=== PATIENT | female | born 1940 | race Caucasian/White ===

== ENCOUNTER 2019-09-24 14:38 | Emergency (ER) | payer MEDICARE, SELFPAY ==
[2019-09-24 14:48] VITALS: BP 142/76; PULSE 75; RESP 19; TEMP 36.8; O2SAT 99
--- NOTE | 2019-09-24 15:47 | ED.GENADULT ---
HPI - General Adult General Chief complaint: Upper Respiratory Infection Stated complaint: SORE THROAT Time Seen by Provider: 09/24/19 15:47 Source: patient and RN notes reviewed Mode of arrival: ambulatory Limitations: no limitations History of Present Illness HPI narrative: 78-year-old male presents with complaints of tight, irritated, and sore throat for 58 days. No treatment. Increase symptoms over the last 48-72 hours with increase pain with swallowing. Ni believes she might have Strep Throat. Awaiting ENT evaluation. No high fevers, drooling, neck, or throat swelling. Pain is bilateral. Hurts to swallow. Exacerbation factors consist of eating and drinking. No rhinorrhea. Nasal congestion. No voice change. No nausea, vomiting, or abdominal pain. Tolerating liquids well. Denies chills, dyspnea, jaw pain, dental pain, facial pain, foreign body sensation, and rash. Remains active. Some parts of this dictation were generated by voice recognition software and may contain typographical and/or grammatical inaccuracies. Related Data Home Medications Medication Instructions Recorded Confirmed albuterol sulfate [ProAir HFA] 1 puff INHALATION QID PRN 07/07/19 09/24/19 aspirin 81 mg PO DAILY 07/07/19 09/24/19 azelastine-fluticasone [Dymista] 1 spray INTRANASAL BID 07/07/19 09/24/19 calcium carbonate [Calcium 500] 500 mg PO DAILY 07/07/19 09/24/19 cetirizine 10 mg PO DAILY 07/07/19 09/24/19 cholecalciferol (vitamin D3) 2,000 unit PO DAILY 07/07/19 09/24/19 [Vitamin D3] [id number] K 1 tablet PO DAILY 07/07/19 09/24/19 [Adults Multivitamin] oxybutynin chloride 10 mg PO DAILY 07/07/19 09/24/19 pravastatin 40 mg PO DAILY 07/07/19 09/24/19 Allergies Allergy/AdvReac Type Severity Reaction Status Date / Time No Known Allergies Allergy Verified 08/15/19 11:41 Review of Systems Review of Systems: Narrative: CONSTITUTIONAL: Denies fever, chills, sweats. EYES: Denies visual changes, redness, discharge. ENT: Denies rhinorrhea, otalgia. Complains of sore throat, congestion. CARDIOVASCULAR: Denies chest pain, palpitations, edema. RESPIRATORY: Denies dyspnea, wheezing, cough. GASTROINTESTINAL: Denies abdominal pain, nausea, vomiting, diarrhea. GENITOURINARY: Denies dysuria, hematuria, abnormal discharge. SKIN: Denies rash or itching. MUSCULOSKELETAL: Denies acute back pain, joint pain, or myalgia. NEUROLOGIC: Denies numbness or focal weakness. PSYCHIATRIC: Denies anxiety or depression. All systems reviewed & are unremarkable except as noted in HPI and below. FOR[facility] Past Medical History Medical History Anxiety Arthritis of hip Back pain with history of spinal surgery Bilateral carpal tunnel syndrome Cervical cancer COPD (chronic obstructive pulmonary disease) Cough Depression GERD (gastroesophageal reflux disease) Gout History of emphysema Hyperlipidemia Pneumonia Rectal polyp Skin cancer Sleep apnea Uterine cancer UTI (urinary tract infection) Surgical History Surgical History H/O bilateral cataract extraction History of appendectomy History of bladder suspension procedure History of hysterectomy Hx of tonsillectomy Family History Family History Mother Diabetes mellitus Family history of cardiovascular disease Carcinoma of colon Hypertension Family history of malignant neoplasm Father Family history of lung cancer, Onset Age: 45 Family history of malignant neoplasm Sibling Family history of sleep apnea Social History Social History Smoking status: Former smoker Smoking end date: 07/27/97 Alcohol intake: current Comments At time of signature, agree with nurse past medical, surgical, social, and family history. There is no rele
== END 2019-09-24 16:04 | disposition home or self-care (01) ==
PROVIDERS: Emergency Provider Nurse Practitioner Family; PCP Family Medicine
DX: J02.0 Streptococcal pharyngitis (principal); M16.10 Unilateral primary osteoarthritis, unspecified hip; J44.9 Chronic obstructive pulmonary disease, unspecified; K21.9 Gastro-esophageal reflux disease without esophagitis; M10.9 Gout, unspecified; E78.5 Hyperlipidemia, unspecified; G47.30 Sleep apnea, unspecified; Z85.42 Personal history of malignant neoplasm of other parts of uterus; Z85.828 Personal history of other malignant neoplasm of skin; Z85.41 Personal history of malignant neoplasm of cervix uteri
CPT/HCPCS: 87880; 99213; G0463